=== PATIENT | female | born 1985 | race African-American/Black ===

== ENCOUNTER 2018-11-20 08:50 | Inpatient (IN) ==
[2018-11-20] MEDS ORDERED: CITRIC ACID/SODIUM CITRATE 30 ML UDCUP PO ONE (09:05)
[2018-11-20] MEDS ORDERED: ceFAZolin 2,000 MG in PREMIX 1 EACH IV ONE (09:05)
[2018-11-20] MEDS ORDERED: FAMOTIDINE 20 MG/2 ML VIAL IV ONE (09:05)
[2018-11-20 09:21] LABS: Basophils # 0.1 10*3/uL (0.0-0.2); Basophils % 0.5 % (0.0-0.8); Eosinophils # 0.1 10*3/uL (0.0-0.87); Eosinophils % 0.8 % (0.00-10.9); Hematocrit 38.8 VOL% (35.7-47.0); Hemoglobin 13.4 GM/DL (12.0-16.0); Immature Granulocytes % 2.2 %; Immature Granulocytes Absolute 0.37 #; Lymphocytes # 2.3 10*3/uL (1.4-4.0); Lymphocytes % 13.8 % (21.3-54.2); Mean Corpuscular HGB Conc 34.5 GM/DL (32-36); Mean Corpuscular Volume 91.5 FL (87-102); Mean Platelet Volume 10.9 FL (9.6-12.0); Monocytes % 6.5 % (1.7-12.7); NRBC # 0.02 10*3/uL; Neutrophils % 76.2 % (38.7-73.9); Platelet Count 227 T/CUMM (130-400); Red Blood Count 4.24 MC/CUMM (3.8-5.5); Red Cell Distribution Width 14.6 % (9.3-17.3); White Blood Count 16.5 T/CUMM (4-12)
[2018-11-20] MEDS ORDERED: OXYTOCIN/LR 30 UNIT/1,000 ML BAG IV ONE (09:27)
[2018-11-20] MEDS ORDERED: OXYTOCIN 10 UNIT/ML VIAL IM ONE (09:27)
[2018-11-20] MEDS ORDERED: LACTATED RINGERS 1,000 ML IV SCH ×2 (09:30→11:00)
[2018-11-20 09:46] LABS: Alanine Aminotransferase 18 U/L (13-56); Albumin 2.5 G/DL (3.4-5.0); Alkaline Phosphatase 237 U/L (45-117); Aspartate Amino Transferase 18 U/L (0-37); Bilirubin,Total < 0.39 MG/DL (0.2-1.0); Blood Urea Nitrogen 5 MG/DL (7-18); Calcium 8.6 MG/DL (8.5-10.1); Estimated Glom Filtration Rate 110 ML/MIN; Glucose 124 MG/DL (74-106); Osmolality,Calculated 274.5 MOS/KG (273-304); Total Protein 6.7 G/DL (6.4-8.3)
[2018-11-20 10:28] LABS: Apearance,Urine CLEAR (Clear); Bilirubin,Urine Negative (Negative); Blood, Urine Small mg/dL (Negative); Glucose,Urine (UA) Negative (Negative); Ketones,Urine Negative (Negative); Mucus,Urine Few /LPF (Occasional); Nitrite,Urine Negative (Negative); Protein,Urine 100 MG/DL; RBC,Urine 8 /HPF (0-4); Squamous Epithelial Cell,Urine Occasional /HPF (0-10); Urine Color Yellow (Yellow); Urine Specific Gravity 1.023 (1.001-1.035); WBC,Urine 3 /HPF (0-6)
[2018-11-20 10:34] LABS: Barbiturates Screen,Urine Negative (Negative); Benzodiazepines Screen,Urine Negative (Negative); Cannabinoid Screen,Urine Positive (Negative); Opiate Screen,Urine Negative (Negative); Phencyclidine Screen,Urine Negative (Negative)
[2018-11-20 10:37] LABS: Cord Venous Blood HCO3 25.1 MMOL/L; Cord Venous Blood PCO2 46.8 MMHG; Cord Venous Blood PO2 25.1 MMHG
[2018-11-20 10:40] LABS: Cord Arterial Blood HCO3 22.1 MMOL/L
[2018-11-20 10:45] LABS: Rapid Plasma Reagin Confirm REACTIVE (Nonreactive)
[2018-11-20] MEDS ORDERED: RHO(D) IMMUNE GLOBULIN 300 MCG SYRINGE IM ONE (10:50)
[2018-11-20] MEDS ORDERED: ONDANSETRON 4 MG/2 ML VIAL IV PRN (10:50)
[2018-11-20] MEDS ORDERED: ACETAMINOPHEN 325 MG TABLET PO PRN (10:50)
[2018-11-20] MEDS ORDERED: MAGNESIUM HYDROXIDE SUSP 30 ML UDCUP PO PRN (10:50)
[2018-11-20] MEDS ORDERED: SIMETHICONE CHEW 80 MG TABLET PO PRN (10:50)
[2018-11-20] MEDS ORDERED: OXYTOCIN/LR 20 UNIT/1,000 ML BAG IV ONE ×2 (10:50→10:51)
[2018-11-20] MEDS ORDERED: BUPIVACAINE SPINAL 0.75% 2 ML AMP SPINAL ONE (10:52)
[2018-11-20] MEDS ORDERED: MORPHINE 10 MG/10 ML VIAL ONE (10:53)
[2018-11-20] MEDS ORDERED: hydrALAZINE 20 MG/1 ML VIAL ONE (10:53)
[2018-11-20] MEDS ORDERED: hydrALAZINE 20 MG/1 ML VIAL IV ONE (11:50)
[2018-11-20] MEDS ORDERED: diphenhydrAMINE 50 MG/1 ML VIAL IV PRN (16:33)
[2018-11-20] MEDS ORDERED: diphenhydrAMINE 50 MG/1 ML VIAL ONE (16:34)
[2018-11-20] MEDS ORDERED: SODIUM CHLORIDE 0.9% 50 ML IV ONE (17:26)
[2018-11-20] MEDS: ceFAZolin 1,000 MG in SYRINGE 1 EACH IV SCH (17:30)
[2018-11-20 18:59] LABS: Basophils # 0.1 10*3/uL (0.0-0.2); Basophils % 0.6 % (0.0-0.8); Eosinophils # 0.1 10*3/uL (0.0-0.87); Eosinophils % 0.7 % (0.00-10.9); Hematocrit 39.8 VOL% (35.7-47.0); Hemoglobin 13.6 GM/DL (12.0-16.0); Immature Granulocytes % 2.8 %; Immature Granulocytes Absolute 0.46 #; Lymphocytes # 1.8 10*3/uL (1.4-4.0); Lymphocytes % 11.2 % (21.3-54.2); Mean Corpuscular HGB Conc 34.2 GM/DL (32-36); Mean Corpuscular Volume 90.9 FL (87-102); Mean Platelet Volume 10.8 FL (9.6-12.0); Monocytes % 6.1 % (1.7-12.7); NRBC # 0.02 10*3/uL; Neutrophils % 78.6 % (38.7-73.9); Platelet Count 234 T/CUMM (130-400); Red Blood Count 4.38 MC/CUMM (3.8-5.5); Red Cell Distribution Width 14.6 % (9.3-17.3); White Blood Count 16.4 T/CUMM (4-12)
[2018-11-20] MEDS ORDERED: hydrOXYzine HCL 25 MG/1 ML VIAL IM PRN (19:35)
[2018-11-20] MEDS: IBUPROFEN 800 MG TABLET PO PRN (19:36)
[2018-11-20] MEDS: DOCUSATE SODIUM 100 MG CAPSULE PO SCH (20:37)
[2018-11-21] MEDS: ceFAZolin 1,000 MG in SYRINGE 1 EACH IV SCH (01:12)
[2018-11-21 05:41] LABS: Basophils # 0.1 10*3/uL (0.0-0.2); Basophils % 0.4 % (0.0-0.8); Eosinophils # 0.1 10*3/uL (0.0-0.87); Eosinophils % 0.9 % (0.00-10.9); Hematocrit 39.1 VOL% (35.7-47.0); Immature Granulocytes Absolute 0.65 #; Lymphocytes # 1.5 10*3/uL (1.4-4.0); Lymphocytes % 9.3 % (21.3-54.2); Mean Corpuscular HGB Conc 33.2 GM/DL (32-36); Mean Corpuscular Volume 91.8 FL (87-102); Monocytes % 7.8 % (1.7-12.7); NRBC # 0.02 10*3/uL; Neutrophils % 77.6 % (38.7-73.9); Platelet Count 223 T/CUMM (130-400); Red Blood Count 4.26 MC/CUMM (3.8-5.5); White Blood Count 16.4 T/CUMM (4-12)
[2018-11-21 06:27] LABS: Band Neutrophils 3 % (0-10); Lymphocytes 8 % (20-55); Segmented Neutrophils 84 % (50-85); Total Cells Counted 100
[2018-11-21 06:28] LABS: Anisocytosis 1+; Platelet Estimate Normal
[2018-11-21] MEDS ORDERED: MAGNESIUM HYDROXIDE SUSP 30 ML UDCUP PO SCH (09:00)
[2018-11-21] MEDS ORDERED: MULTIVITAMIN (PRENATAL) TABLET PO SCH (09:00)
[2018-11-21] MEDS: DOCUSATE SODIUM 100 MG CAPSULE PO SCH (11:51)
[2018-11-21] MEDS: METOCLOPRAMIDE 10 MG TABLET PO SCH ×2 (11:52→15:45)
[2018-11-21] MEDS: IBUPROFEN 800 MG TABLET PO PRN (15:43)
[2018-11-21 15:48] VITALS: BP 150/97
== END 2018-11-21 18:50 | disposition left against medical advice (07) | DRG 540 ==
LOC: N.LDOUT 08:50 → N.LD 08:53 → N.OB 14:25
PROVIDERS: ADMIT Obstetrics & Gynecology; ATTEND Obstetrics & Gynecology
PROC: LDCSECT (ICD-10-PCS; 2018-11-20 10:00)

== ENCOUNTER 2021-06-14 09:37 | Inpatient (IN) ==
[2021-06-14] MEDS ORDERED: miSOPROStoL 200 MCG TABLET RECTAL PRN (09:50)
[2021-06-14] MEDS ORDERED: CARBOPROST TROMETHAMINE 250 MCG/ML AMP IM PRN (09:50)
[2021-06-14] MEDS ORDERED: TRANEXAMIC ACID 1,000 MG in SODIUM CHLORIDE 0.9% 100 ML IV PRN (09:50)
[2021-06-14] MEDS ORDERED: ONDANSETRON 4 MG/2 ML VIAL IV PRN ×2 (09:50→13:54)
[2021-06-14] MEDS ORDERED: METHYLERGONOVINE 0.2 MG/1 ML AMP IM PRN (09:50)
[2021-06-14] MEDS ORDERED: NIFEdipine 10 MG CAPSULE PO PRN (09:59)
[2021-06-14] MEDS ORDERED: MAGNESIUM SULF RIDER 4 GM/100 ML PREMIX IV ONE ×2 (10:00→10:30)
[2021-06-14] MEDS ORDERED: NIFEdipine 10 MG CAPSULE PO ONE (10:01)
[2021-06-14] MEDS ORDERED: MAGNESIUM SULF DRIP 40 GM/1,000 ML ML IV ONE (10:01)
[2021-06-14 10:14] LABS: Basophils # 0.1 10*3/uL (0.0-0.2); Basophils % 0.8 % (0.0-0.8); Eosinophils # 0.1 10*3/uL (0.0-0.87); Eosinophils % 0.5 % (0.00-10.9); Hematocrit 41.2 VOL% (35.7-47.0); Hemoglobin 13.6 GM/DL (12.0-16.0); Immature Granulocytes Absolute 0.77 #; Lymphocytes # 0.7 10*3/uL (1.4-4.0); Lymphocytes % 5.3 % (21.3-54.2); Mean Corpuscular Volume 93.2 FL (87-102); Mean Platelet Volume 9.4 FL (9.6-12.0); Monocytes # 0.1 10*3/uL (0.11-0.8); Monocytes % 1.1 % (1.7-12.7); Neutrophils % 86.3 % (38.7-73.9); Platelet Count 295 T/CUMM (130-400); Red Blood Count 4.42 MC/CUMM (3.8-5.5); Red Cell Distribution Width 13.7 % (9.3-17.3); White Blood Count 12.8 T/CUMM (4-12)
[2021-06-14 10:20] LABS: Bacteria,Urine Moderate /HPF (Few); Mucus,Urine Few /LPF (Occasional); RBC,Urine 8 /HPF (0-4); Squamous Epithelial Cell,Urine Occasional /HPF (0-10); Urine Appearance Clear (Clear); Urine Color Yellow (Yellow); Urine Specific Gravity 1.015 (1.001-1.035); Urine pH 6.5 (4.5-8.0)
[2021-06-14 10:21] LABS: Bilirubin,Urine Negative (Negative); Blood, Urine Moderate mg/dL (Negative); Glucose,Urine (UA) Negative (Negative); Ketones,Urine Negative (Negative); Nitrite,Urine Negative (Negative); Protein,Urine Trace mg/dL (Negative); Urine Urobilinogen 0.2 eU/dL (<2.0)
[2021-06-14 10:29] LABS: Protein/Creatinine Ratio,Urine 0.5 RATIO
[2021-06-14 10:30] LABS: INR 0.9; PT Patient Result 10.4 SECS (10.5-12.0)
[2021-06-14] MEDS ORDERED: OXYTOCIN/LR 20 UNIT/1,000 ML BAG IV ONE ×2 (10:30→13:54)
[2021-06-14 10:33] LABS: Band Neutrophils 2 % (0-10); Eosinophils 1 % (0-10); Lymphocytes 5 % (20-55); Platelet Estimate Adequate; Total Cells Counted 100
[2021-06-14] MEDS: LACTATED RINGERS 1,000 ML IV SCH ×3 (10:37→18:13)
[2021-06-14 10:38] LABS: Barbiturates Screen,Urine Negative (Negative); Benzodiazepines Screen,Urine Negative (Negative); Cannabinoid Screen,Urine Negative (Negative); Opiate Screen,Urine Negative (Negative); Phencyclidine Screen,Urine Negative (Negative)
[2021-06-14] MEDS: MAGNESIUM SULF DRIP 40 GM/1,000 ML ML IV SCH (10:51)
[2021-06-14 11:02] LABS: Alanine Aminotransferase 19 U/L (13-56); Albumin 2.4 G/DL (3.4-5.0); Alkaline Phosphatase 155 U/L (45-117); Aspartate Amino Transferase 18 U/L (0-37); Bilirubin,Total < 0.39 MG/DL (0.20-1.00); Blood Urea Nitrogen 5 MG/DL (7-18); Calcium 8.9 MG/DL (8.5-10.1); Carbon Dioxide 22 MMOL/L (21-32); Chloride 108 MMOL/L (98-107); Estimated Glom Filtration Rate 152 ML/MIN; Glucose 71 MG/DL (74-106); Potassium 3.9 MMOL/L (3.5-5.1); Sodium 136 MMOL/L (136-145); Total Protein 7.1 G/DL (6.4-8.2); Uric Acid 3.5 MG/DL (2.6-6.0)
[2021-06-14 11:17] LABS: Hepatitis B Surface Ag Quant < 0.10 Index; Hepatitis B Surface Ag Result Non-Reactive (NonReactive)
[2021-06-14 11:33] LABS: HIV Antigen/Antibody Result Nonreactive (Nonreactive)
[2021-06-14] MEDS ORDERED: ceFAZolin 2,000 MG/50 ML DUPLEX IV ONE (12:19)
[2021-06-14] MEDS ORDERED: FAMOTIDINE 20 MG/2 ML VIAL IV ONE (12:19)
[2021-06-14] MEDS ORDERED: CITRIC ACID/SODIUM CITRATE 30 ML UDCUP PO ONE (12:19)
[2021-06-14 12:28] LABS: RPR Confirm - Less than 1 yr REACTIVE (Nonreactive)
[2021-06-14] MEDS ORDERED: SODIUM CHLORIDE 0.9% 0 ML IV ONE (12:30)
[2021-06-14] MEDS ORDERED: ONDANSETRON 4 MG/2 ML VIAL ONE (12:47)
[2021-06-14] MEDS ORDERED: PHENYLEPHRINE 1 MG/10 ML SYRINGE IV ONE (12:47)
[2021-06-14] MEDS ORDERED: buprenorphine HCL 0.3 MG/ML VIAL ONE (12:48)
[2021-06-14] MEDS ORDERED: BUPIVACAINE MPF 0.5% 30 ML VIAL ONE (12:53)
[2021-06-14] MEDS ORDERED: MIDAZOLAM 2 MG/2 ML VIAL ONE ×2 (13:00)
[2021-06-14] MEDS ORDERED: fentaNYL 250 MCG/5 ML VIAL ONE (13:11)
[2021-06-14] MEDS ORDERED: ROCURONIUM 50 MG/5 ML VIAL IV ONE (13:11)
[2021-06-14] MEDS ORDERED: SEVOFLURANE 1 UNIT/15 MINUTE INH ONE (13:11)
[2021-06-14] MEDS ORDERED: LIDOCAINE 2% 5 ML VIAL ONE (13:11)
[2021-06-14] MEDS ORDERED: SUCCINYLCHOLINE 200 MG/10 ML VIAL ONE (13:11)
[2021-06-14] MEDS ORDERED: propofoL 200 MG/20 ML VIAL IV ONE (13:11)
[2021-06-14] MEDS ORDERED: ROPIVACAINE 0.5% 30 ML VIAL ONE ×2 (13:21→13:22)
[2021-06-14] MEDS ORDERED: fentaNYL 100 MCG/2 ML VIAL ONE ×2 (13:23→13:50)
[2021-06-14] MEDS ORDERED: IBUPROFEN 800 MG TABLET PO PRN (13:54)
[2021-06-14] MEDS ORDERED: ACETAMINOPHEN 325 MG TABLET PO PRN (13:54)
[2021-06-14] MEDS ORDERED: RHO(D) IMMUNE GLOBULIN 300 MCG SYRINGE IM ONE (13:54)
[2021-06-14] MEDS ORDERED: LACTATED RINGERS 1,000 ML IV SCH (14:00)
[2021-06-14] MEDS: DOCUSATE SODIUM 100 MG CAPSULE PO SCH (21:17)
[2021-06-14 21:26] LABS: Basophils # 0.1 10*3/uL (0.0-0.2); Basophils % 0.4 % (0.0-0.8); Hematocrit 36.3 VOL% (35.7-47.0); Hemoglobin 12.1 GM/DL (12.0-16.0); Immature Granulocytes % 2.3 %; Immature Granulocytes Absolute 0.48 #; Lymphocytes # 0.6 10*3/uL (1.4-4.0); Lymphocytes % 2.8 % (21.3-54.2); Mean Corpuscular HGB Conc 33.3 GM/DL (32-36); Mean Corpuscular Volume 91.2 FL (87-102); Mean Platelet Volume 9.2 FL (9.6-12.0); Monocytes % 4.8 % (1.7-12.7); Neutrophils % 89.7 % (38.7-73.9); Platelet Count 283 T/CUMM (130-400); Red Blood Count 3.98 MC/CUMM (3.8-5.5); Red Cell Distribution Width 13.6 % (9.3-17.3); White Blood Count 20.7 T/CUMM (4-12)
[2021-06-14 21:48] LABS: Band Neutrophils 2 % (0-10); Lymphocytes 4 % (20-55); Metamyelocytes 2 %; Myelocytes 1 %; Total Cells Counted 100
[2021-06-14 21:49] LABS: Platelet Estimate Adequate
[2021-06-15 04:36] LABS: Basophils # 0.1 10*3/uL (0.0-0.2); Basophils % 0.3 % (0.0-0.8); Eosinophils # 0.1 10*3/uL (0.0-0.87); Eosinophils % 0.3 % (0.00-10.9); Hematocrit 34.4 VOL% (35.7-47.0); Hemoglobin 11.5 GM/DL (12.0-16.0); Immature Granulocytes Absolute 0.35 #; Lymphocytes # 0.9 10*3/uL (1.4-4.0); Lymphocytes % 5.4 % (21.3-54.2); Mean Corpuscular HGB Conc 33.4 GM/DL (32-36); Mean Corpuscular Volume 90.1 FL (87-102); Mean Platelet Volume 9.3 FL (9.6-12.0); Monocytes # 0.8 10*3/uL (0.11-0.8); Monocytes % 4.6 % (1.7-12.7); Neutrophils % 87.4 % (38.7-73.9); Platelet Count 258 T/CUMM (130-400); Red Blood Count 3.82 MC/CUMM (3.8-5.5); Red Cell Distribution Width 13.8 % (9.3-17.3); White Blood Count 17.3 T/CUMM (4-12)
[2021-06-15] MEDS: MAGNESIUM SULF DRIP 40 GM/1,000 ML ML IV SCH (08:33)
[2021-06-15] MEDS ORDERED: BICILLIN CR 1,200,000 UNIT/2 ML SYRINGE IM ONE ×2 (08:50→12:00)
[2021-06-15] MEDS: DOCUSATE SODIUM 100 MG CAPSULE PO SCH ×2 (12:37→21:20)
[2021-06-15] MEDS: MULTIVITAMIN (PRENATAL) TABLET PO SCH (12:37)
[2021-06-15] MEDS: METOPROLOL TARTRATE 25 MG TABLET PO SCH ×2 (21:20→22:38)
[2021-06-16] MEDS: MULTIVITAMIN (PRENATAL) TABLET PO SCH (09:27)
[2021-06-16] MEDS: SIMETHICONE CHEW 80 MG TABLET PO PRN (09:27)
[2021-06-16] MEDS: DOCUSATE SODIUM 100 MG CAPSULE PO SCH (09:27)
[2021-06-16] MEDS: MAGNESIUM HYDROXIDE SUSP 30 ML UDCUP PO PRN (09:27)
[2021-06-16] MEDS: METOPROLOL TARTRATE 25 MG TABLET PO SCH (09:28)
[2021-06-16] MEDS: POLYETHYLENE GLYCOL POWDER 17 GM PACK PO SCH (12:11)
[2021-06-16] MEDS: ENOXAPARIN 30 MG/0.3 ML SYRINGE SUBCUT SCH (12:11)
[2021-06-16] MEDS: BISACODYL 10 MG SUPP RECTAL PRN (16:06)
[2021-06-16] MEDS ORDERED: FAMOTIDINE 20 MG/2 ML VIAL IV PRN (18:24)
[2021-06-16] MEDS ORDERED: SODIUM PHOSPHATE ENEMA 133 ML BOTTLE RECTAL ONE (18:25)
[2021-06-17] MEDS: POLYETHYLENE GLYCOL POWDER 17 GM PACK PO SCH ×3 (00:45→22:20)
[2021-06-17] MEDS: DOCUSATE SODIUM 100 MG CAPSULE PO SCH ×3 (00:45→22:20)
[2021-06-17] MEDS: METOPROLOL TARTRATE 25 MG TABLET PO SCH ×2 (04:20→16:41)
[2021-06-17] MEDS ORDERED: hydrALAZINE 20 MG/1 ML VIAL IV PRN (04:59)
[2021-06-17] MEDS ORDERED: MORPHINE 2 MG/1 ML SYRINGE IV ONE (05:46)
[2021-06-17] MEDS ORDERED: ONDANSETRON 4 MG/2 ML VIAL IV ONE (05:47)
[2021-06-17] MEDS ORDERED: cloNIDine 0.1 MG TABLET PO ONE (06:39)
[2021-06-17] MEDS: cloNIDine 0.1 MG TABLET PO ONE ×2 (07:02→07:57)
[2021-06-17] MEDS: FAMOTIDINE 20 MG/2 ML VIAL IV SCH ×2 (09:15→21:07)
[2021-06-17] MEDS ORDERED: HYDROmorphone 1 MG/1 ML SYRINGE IV PRN (09:50)
[2021-06-17 10:18] LABS: Calcium 8.9 MG/DL (8.5-10.1); Osmolality,Calculated 263.4 MOS/KG (273-304); Potassium 3.8 MMOL/L (3.5-5.1)
[2021-06-17] MEDS: LACTATED RINGERS 1,000 ML IV SCH ×2 (10:43→23:10)
[2021-06-17] MEDS: KETOROLAC 30 MG/1 ML VIAL IV SCH ×3 (10:45→22:10)
[2021-06-17] MEDS ORDERED: SODIUM PHOSPHATE ENEMA 133 ML BOTTLE RECTAL ONE (10:59)
[2021-06-17] MEDS: MULTIVITAMIN (PRENATAL) TABLET PO SCH (11:34)
[2021-06-17] MEDS: ENOXAPARIN 30 MG/0.3 ML SYRINGE SUBCUT SCH (13:23)
[2021-06-17] MEDS: METOPROLOL TARTRATE 50 MG TABLET PO SCH ×2 (19:50→22:21)
[2021-06-17] MEDS: hydrALAZINE 25 MG TABLET PO SCH (23:09)
[2021-06-18] MEDS: KETOROLAC 30 MG/1 ML VIAL IV SCH ×2 (03:39→10:30)
[2021-06-18 05:52] LABS: Basophils # 0.2 10*3/uL (0.0-0.2); Basophils % 0.9 % (0.0-0.8); Eosinophils # 0.2 10*3/uL (0.0-0.87); Eosinophils % 0.9 % (0.00-10.9); Hematocrit 32.4 VOL% (35.7-47.0); Immature Granulocytes Absolute 1.44 #; Lymphocytes # 0.9 10*3/uL (1.4-4.0); Lymphocytes % 5.1 % (21.3-54.2); Mean Platelet Volume 9.4 FL (9.6-12.0); Monocytes # 1.5 10*3/uL (0.11-0.8); Neutrophils % 77.1 % (38.7-73.9); Platelet Count 337 T/CUMM (130-400); Red Cell Distribution Width 13.8 % (9.3-17.3); White Blood Count 18.1 T/CUMM (4-12)
[2021-06-18 06:12] LABS: Calcium 8.6 MG/DL (8.5-10.1); Osmolality,Calculated 268.2 MOS/KG (273-304); Potassium 3.8 MMOL/L (3.5-5.1)
[2021-06-18 07:23] LABS: Eosinophils 1 % (0-10); Lymphocytes 12 % (20-55); Platelet Estimate Normal; Total Cells Counted 100
[2021-06-18] MEDS: METOPROLOL TARTRATE 50 MG TABLET PO SCH (08:53)
[2021-06-18] MEDS: FAMOTIDINE 20 MG/2 ML VIAL IV SCH (08:59)
[2021-06-18] MEDS: DOCUSATE SODIUM 100 MG CAPSULE PO SCH (09:00)
[2021-06-18] MEDS: POLYETHYLENE GLYCOL POWDER 17 GM PACK PO SCH (09:00)
[2021-06-18] MEDS: MULTIVITAMIN (PRENATAL) TABLET PO SCH (09:00)
[2021-06-18] MEDS: BISACODYL 10 MG SUPP RECTAL PRN (09:03)
[2021-06-18 10:28] LABS: Rubella Antibody IgG Result Reactive (NonReactive)
[2021-06-18] MEDS: SIMETHICONE CHEW 80 MG TABLET PO PRN (10:29)
[2021-06-18] MEDS: hydrALAZINE 25 MG TABLET PO SCH ×2 (10:30→10:39)
[2021-06-18] MEDS: MAGNESIUM HYDROXIDE SUSP 30 ML UDCUP PO PRN (10:30)
[2021-06-18 12:26] VITALS: BP 111/81
== END 2021-06-18 10:50 | disposition left against medical advice (07) | DRG 540 ==
LOC: N.LD 09:37 → N.OB 06-15 15:24
PROVIDERS: ADMIT Obstetrics & Gynecology; ATTEND Obstetrics & Gynecology
PROC: LDCSECT (ICD-10-PCS; 2021-06-14 12:00)